=== PATIENT | female | born 1995 | race Caucasian/White ===

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

== ENCOUNTER 2017-01-07 18:07 | Emergency (ER) | payer BC ==
[~2017-01-07] VITALS: Ht 160 cm; Wt 72.6 kg
[~2017-01-07 18:07] MED LIST changes: +Tobrex Ophth S2.5 ML OPH
[2017-01-07 18:14] VITALS: BP 143/77
== END 2017-01-07 19:22 | disposition home or self-care (01) ==
LOC: ED 18:07
DX: S80.01XA Contusion of right knee, initial encounter (principal); Z79.899 Other long term (current) drug therapy; Z88.1 Allergy status to other antibiotic agents; W19.XXXA Unspecified fall, initial encounter; Y93.89 Activity, other specified; Y92.89 Other specified places as the place of occurrence of the external cause; Y99.9 Unspecified external cause status

== ENCOUNTER 2017-05-17 18:21 | Emergency (ER) | payer BC ==
[~2017-05-17] VITALS: Wt 90.7 kg
[2017-05-17 18:30] VITALS: BP 119/73
[2017-05-17] MEDS ORDERED: FLONASE ALLERG9.9 ML NAS (18:40)
[2017-05-17] MEDS ORDERED: ROBITUSSIN DM 105 ML PO (18:40)
[2017-05-17] MEDS ORDERED: CLARITIN10 MG PO (18:40)
[2017-05-17] MEDS ORDERED: PREDNISONE10 MG PO (18:46)
== END 2017-05-17 19:44 | disposition home or self-care (01) ==
LOC: ED 18:21
DX: B34.9 Viral infection, unspecified (principal); J02.9 Acute pharyngitis, unspecified; Z88.8 Allergy status to other drugs, medicaments and biological substances